=== PATIENT | female | born 1985 | race Two or more races ===

== ENCOUNTER 2020-04-18 20:20 | Observation (INO) | payer MEDICAID ==
[~2020-04-18] VITALS: Ht 165.1 cm; Wt 88.5 kg
[2020-04-18] MEDS ORDERED: PNV1TABL50 PO (21:12)
[2020-04-18 21:40] LABS: CLARITY URINE CLEAR (CLEAR); COLOR URINE YELLOW (YELLOW); KETONES URINE NEGATIVE (NEGATIVE); LEUKOCYTE ESTERASE URINE 3+ (NEGATIVE); NITRITE URINE NEGATIVE (NEGATIVE); OCCULT BLOOD URINE NEGATIVE (NEGATIVE); PROTEIN URINE NEGATIVE (NEGATIVE); SPECIFIC GRAVITY URINE 1.011 (1.005-1.030); UROBILINOGEN URINE 0.2 E.U./dL (0.2-1.0)
[2020-04-18] MEDS ORDERED: LACTATED RINGERS 1,000 ML IV SCH (23:15)
[2020-04-18] MEDS ORDERED: CEFAZOLIN 2,000 MG in DEXT 5% WATER 100 ML IV SCH (23:30)
[2020-04-18] MEDS ORDERED: NITR-87 PO (23:38)
== END 2020-04-19 | disposition home or self-care (01) ==
LOC: 8 EST LDRP 20:20
PROVIDERS: ADMIT Obstetrics & Gynecology; ATTEND Obstetrics & Gynecology
DX: O99.891 Other specified diseases and conditions complicating pregnancy (principal); M54.5 Low back pain; O26.893 Other specified pregnancy related conditions, third trimester; R10.30 Lower abdominal pain, unspecified; R35.0 Frequency of micturition; Z3A.36 36 weeks gestation of pregnancy
CPT/HCPCS: 59025; 76805; 76818; 81003; 96365; G0378; J0690; J7060; 99281

== ENCOUNTER 2020-05-09 17:30 | Observation (INO) | payer MEDICAID ==
[~2020-05-09] VITALS: Ht 165.1 cm; Wt 95.3 kg
[~2020-05-09 17:30] MED LIST: NITR-87 PO; PNV1TABL50 PO
[2020-05-09] MEDS ORDERED: LACTATED RINGERS 1,000 ML IV SCH (19:15)
== END 2020-05-09 19:38 | disposition home or self-care (01) ==
LOC: 8 EST LDRP 17:30
PROVIDERS: ADMIT Obstetrics & Gynecology; ATTEND Obstetrics & Gynecology
DX: O62.9 Abnormality of forces of labor, unspecified (principal); Z3A.39 39 weeks gestation of pregnancy
CPT/HCPCS: 59025; G0378; 99281